=== PATIENT | male | born 1995 | race African-American/Black ===

== ENCOUNTER 2017-08-13 01:04 | Emergency (ER) | payer SELFPAY ==
[~2017-08-13] VITALS: Ht 167.6 cm; Wt 66.0 kg
[2017-08-13 02:25] VITALS: BP 118/73
== END 2017-08-13 02:37 | disposition home or self-care (01) ==
LOC: EMS 01:05
DX: B34.9 Viral infection, unspecified (principal); F17.210 Nicotine dependence, cigarettes, uncomplicated
CPT/HCPCS: 99281; 99406